=== PATIENT | male | born 1970 | race Caucasian/White ===

== ENCOUNTER 2017-09-09 20:34 | Emergency (ER) | payer OTHER ==
[2017-09-09] MEDS ORDERED: LET GEL TOPICAL 1 EA SYR TP ONE ×2 (20:48→20:52)
[2017-09-09 20:52] VITALS: RESP 16; O2SAT 96
[2017-09-09] MEDS ORDERED: TDAP ADULT 0.5 ML INJ (BOOSTRIX) IM ONE ×2 (20:52→21:35)
--- NOTE | 2017-09-09 20:56 | EDPHY ---
H & P Time Seen by Provider: 09/09/17 20:51 HPI/ROS: 46-year-old male presents complaining of nail gun injury to his left hand, he hit his hand with a nail gun and the nail entered at the webspace between his 1st and 2nd fingers he then removed the nail. He denies numbness or tingling in his hand he does complain of pain where he believes the nail gun hit a bone. He has no difficulty moving his fingers or thumb. He does not recall when his last tetanus shot was. He is very frightened of needles and passes out easily at the site of needles. Review of systems As per HPI General no fever no chills no weakness HEENT no eye pain no eye discharge. No eye redness, no sore throat Respiratory no cough, no shortness of breath Cardiac no chest pain, no peripheral edema GI no abdominal pain, no diarrhea, no constipation, no nausea, no vomiting no flank pain, no hematuria, no dysuria Musculoskeletal no myalgias, positive joint pain Heme no easy bruising, no easy bleeding Endo no polyuria, no polydipsia Skin no rashes, no pruritus Neuro no syncope, no dizziness, no headaches Psych is no suicidal ideation, no homicidal ideation Past Medical/Surgical History: Noncontributory Social History: Alcohol socially denies drug use Smoking Status: Never smoked Physical Exam: 46-year-old male alert and oriented no acute distress nontoxic appearance afebrile, anxious about getting a tetanus injection Atraumatic normocephalic Neck no JVD Lungs clear to auscultation bilaterally no respiratory distress Heart regular rate and rhythm without murmur rub or gallop Left hand Good capillary refill, full range of motion Abrasion at webspace between 1st and 2nd fingers, no gaping laceration , very min puncture wound present Constitutional: Initial Vital Signs Temperature (C) 36.6 C 09/09/17 20:47 Heart Rate 55 L 09/09/17 20:47 Respiratory Rate 16 09/09/17 20:47 Blood Pressure 140/94 H 09/09/17 20:47 O2 Sat (%) 96 09/09/17 20:47 O2 Delivery Mode Room Air Allergies/Adverse Reactions: needles Allergy (Intermediate, Uncoded 09/09/17 20:52) Loss of consciousness Home Medications: Medication Instructions Recorded Amoxicillin/Clavulanate Pot 875 mg PO BID 7 Days #14 tab 09/09/17 [Augmentin 875 MG TAB (*)] Medical Decision Making - Diagnostics Imaging Results: Imaging Impressions Hand X-Ray 09/09/17 20:53 Impression: Negative left hand radiographs. ED Course/Re-evaluation: Patient seen and evaluated for nail gun injury to left hand X-ray negative for fracture negative for soft tissue swelling Impression Left hand puncture wound Plan Update tetanus Wound care Augmentin twice daily x7 days Follow-up primary care physician - Data Points Medications Given: Discontinued Medications Diphtheria/Tetanus/Acell Pertussis (Boostrix) 0.5 ml IM .ONCE ONE Stop: 09/09/17 20:53 Last Admin: 09/09/17 21:35 Dose: 0.5 ml Tetracaine/Epinephrine/Lidocaine (Let Gel Topical) 1 ea TP EDNOW ONE Stop: 09/09/17 20:53 Last Admin: 09/09/17 20:55 Dose: 1 ea Departure - Departure Disposition: Home, Routine, Self-Care Clinical Impression: Puncture wound of left hand with foreign body Condition: Good Instructions: Puncture Wound (ED) Referrals: NONE *PRIMARY CARE P,. [Primary Care Provider] - As per Instructions Prescriptions: Amoxicillin/Clavulanate Pot [Augmentin 875 MG TAB (*)] 875 mg PO BID 7 Days #14 tab
[2017-09-09] MEDS ORDERED: AMOXICILLIN/CLAVULANATE POT 875/125 MG TAB PO ONE (21:44)
[2017-09-09 21:58] VITALS: BP 130/97; PULSE 62; TEMP 97.7
== END 2017-09-09 21:56 | disposition home or self-care (01) ==
LOC: CED 20:34
DX: S61.432A Puncture wound without foreign body of left hand, initial encounter (principal); Z23 Encounter for immunization; W29.4XXA Contact with nail gun, initial encounter
CPT/HCPCS: 73130-PO